=== PATIENT | female | born 2000 | race Caucasian/White ===

== ENCOUNTER 2022-09-24 22:04 | Emergency (ER) | payer BC ==
[~2022-09-24] VITALS: Ht 175.3 cm; Wt 94.3 kg
[2022-09-25] MEDS ORDERED: PREDNISONE20 MG PO (02:06)
[2022-09-25] MEDS ORDERED: EPIPEN 2-P0.3 MG/0.3 IM (02:06)
[2022-09-25] MEDS ORDERED: PEPCID20 MG PO (02:06)
== END 2022-09-25 02:26 | disposition home or self-care (01) ==
LOC: ED 22:04
DX: L50.9 Urticaria, unspecified (principal)
CPT/HCPCS: 99282; J7512; Q0163

== ENCOUNTER 2025-08-15 10:10 | Emergency (ER) | payer BC ==
[~2025-08-15] VITALS: Ht 175.3 cm; Wt 100.1 kg
[~2025-08-15 10:10] MED LIST: EPIPEN 2-P0.3 MG/0.3 IM; PEPCID20 MG PO; PREDNISONE20 MG PO
[2025-08-15 10:59] LABS: BASOPHILS 0.4 % (0.1-1.2); EOSINOPHILS 1.4 % (0.7-5.8); LYMPHOCYTES 25.3 % (19.3-51.7); MCH 27.2 PG (25.6-32.2); MCHC 33.0 g/dL (32.2-35.5); MCV 82.4 fL (79.4-94.8); MONOCYTES 7.3 % (4.7-12.5); NEUTROPHILS 65.2 % (34.0-71.1); RBC 4.67 M/uL (3.93-5.22)
[2025-08-15 11:52] LABS: ALT (SGPT) 17.0 U/L (14-59); AST (SGOT) 11.0 U/L (15-37); GLOMERULAR FILTRATION RATE,EST 131.0 mL/min (>60); PROTEIN, TOTAL 7.0 g/dL (6.4-8.2); UREA NITROGEN 8.0 mg/dL (7-18)
[2025-08-15 12:56] LABS: BLOOD/HGB, URINE LARGE (Negative); KETONE, URINE NEGATIVE (Negative); LEUK ESTERASE, URINE TRACE (negative); NITRITE, URINE NEGATIVE (negative)
[2025-08-15 13:19] LABS: BACTERIA, URINE NONE SEEN /hpf (negative); CASTS, URINE NONE SEEN \\lpf; CRYSTALS, URINE NONE SEEN (0-1+); EPITHELIAL CELLS, URINE SQUAMOUS 2+ /lpf (0-1+); REFLEX CULTURE, URINE No (No)
[2025-08-15 13:24] VITALS: BP 115/64
== END 2025-08-15 13:25 | disposition home or self-care (01) ==
LOC: ED 10:10
PROVIDERS: Emergency Medicine
DX: O20.0 Threatened abortion (principal); Z3A.01 Less than 8 weeks gestation of pregnancy
CPT/HCPCS: 36415; 76801; 76817; 80053; 81001; 84702; 85025; 99284-25